=== PATIENT | female | born 1985 | race Caucasian/White ===

== ENCOUNTER 2016-07-11 21:53 | Emergency (ER) | payer OTHER ==
[~2016-07-11] VITALS: Ht 160 cm; Wt 89.8 kg
[2016-07-11 22:09] VITALS: BP 153/100
--- NOTE | 2016-07-11 22:18 | NUR ---
AMBULATED TO ER BED 8
--- NOTE | 2016-07-11 22:25 | NUR ---
30 YO PATIENT PRESENTS TO ED WITH VAGINA LT LABIAL PAIN . PT STATES WAS SEEN IN [facility] ER LAST WEEK BUT IS NOT GETTING BETTER . DENIES N/V/D; SKIN IS PINK/WARM/DRY; AAOX4 WITH EVEN AND STEADY GAIT; LUNGS CLEAR BL; HR EVEN AND REGULAR; PT DENIES ANY FEVER, CP, SOB, OR COUGH AT THIS TIME; PATIENT STATES PAIN OF 10/10 AT THIS TIME; VSS; PATIENT POSITIONED FOR COMFORT; HOB ELEVATED; BEDRAILS UP X2; BED DOWN. ER MD MADE AWARE OF PT STATUS.
--- NOTE | 2016-07-11 22:31 | NUR ---
Patient being evaluated by physician at bedside.
[2016-07-11] MEDS ORDERED: LIDOCAINE 1% 500 MG/50 ML VIAL INJ ONE (22:35)
[2016-07-11] MEDS ORDERED: HYDROmorphone 1 MG/ML AMP IVP ONE (22:35)
[2016-07-11] MEDS ORDERED: NACL 0.9% 1,000 ML IV ONE (22:35)
[2016-07-11] MEDS ORDERED: CLINDAMYCIN 600 MG in DEXTROSE 5% 50 ML IV ONE (22:35)
[2016-07-11] MEDS ORDERED: KETOROLAC 30 MG/ML VIAL IVP ONE (22:35)
[2016-07-11] MEDS ORDERED: CLINDAMYCIN 600 MG/4 ML VIAL ONE (22:45)
--- NOTE | 2016-07-11 23:50 | NUR ---
IVP DILAUDED 1MG BY HERMAN BONNER
[2016-07-12] MEDS: HYDROmorphone 1 MG/ML AMP IVP ONE ×2 (00:13→00:15)
--- NOTE | 2016-07-12 00:45 | NUR ---
IV FLUID D/C'D AT 0043
--- NOTE | 2016-07-12 00:57 | NUR ---
Patient discharged with v/s stable. Written and verbal after care instructions given and explained. Patient alert, oriented and verbalized understanding of instructions. Ambulatory with steady gait. All questions addressed prior to discharge. ID band removed. Patient advised to follow up with PMD. Rx of Clindamycin and Naproxen given. Patient educated on indication of medication including possible reaction and side effects. Opportunity to ask questions provided and answered.
--- NOTE | 2016-07-12 00:58 | NUR ---
Star hanna in ED - 07/12/16 at 0634 by [id number] Patient discharged with v/s stable. Written and verbal after care instructions given and explained. Patient verbalized understanding. Ambulatory with steady gait. All questions addressed prior to discharge. Advised to follow up with PMD.
[2016-07-12 06:34] VITALS: BP 134/69
== END 2016-07-12 00:55 | disposition home or self-care (01) ==
LOC: MED 21:53
DX: N75.1 Abscess of Bartholin's gland (principal); J45.909 Unspecified asthma, uncomplicated; Z88.5 Allergy status to narcotic agent
CPT/HCPCS: 56420; 81002; 81025; 96361; 96365; 96375; 96376; 99284; J1170; J1885; J2001; J3490; J7030

== ENCOUNTER 2018-08-23 18:48 | Emergency (ER) | payer BC, OTHER ==
[~2018-08-23] VITALS: Ht 162.6 cm; Wt 93.0 kg
[2018-08-23 19:08] VITALS: BP 127/74
--- NOTE | 2018-08-23 19:19 | NUR ---
PT AMBULATED TO THE RESTROOM AND BACK TO THE LOBBY. VSS
--- NOTE | 2018-08-23 21:02 | NUR ---
PATIENT BIB W/C TO ER BED 5.
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
[2018-08-23] MEDS ORDERED: KETOROLAC 30 MG/ML VIAL IM ONE (21:30)
--- NOTE | 2018-08-23 21:44 | NUR ---
KNEE SPLINT APPLIED TO PT R LEG, FITTED TO SIZE. +CSM
[2018-08-23 21:56] VITALS: BP 119/76
--- NOTE | 2018-08-23 21:56 | NUR ---
Patient discharged with v/s stable. Written and verbal after care instructions given and explained. Patient alert, oriented and verbalized understanding of instructions. Ambulatory with steady gait. All questions addressed prior to discharge. ID band removed. Patient advised to follow up with PMD. Rx of NORCO, NAPROSYN given. Patient educated on indication of medication including possible reaction and side effects. Opportunity to ask questions provided and answered.
== END 2018-08-23 21:56 | disposition home or self-care (01) ==
LOC: MED 18:48
DX: S80.01XA Contusion of right knee, initial encounter (principal); J45.909 Unspecified asthma, uncomplicated; Z88.5 Allergy status to narcotic agent; W19.XXXA Unspecified fall, initial encounter; Y93.89 Activity, other specified; Y92.89 Other specified places as the place of occurrence of the external cause; Y99.8 Other external cause status
CPT/HCPCS: 29505; 73562; 81025; 96372; 99283; J1885

== ENCOUNTER 2019-11-11 11:49 | Emergency (ER) | payer BC ==
[~2019-11-11] VITALS: Ht 160 cm; Wt 86.2 kg
--- NOTE | 2019-11-11 11:55 | NUR ---
Patient taken to bed 10.
[2019-11-11 11:57] VITALS: BP 136/83
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
[2019-11-11] MEDS ORDERED: BACITRACIN OINT 500 UNITS/GM PKT TP ONE (12:20)
[2019-11-11] MEDS ORDERED: LIDOCAINE MPF 1% 10 MG/ML VIAL INJ ONE (12:20)
[2019-11-11 13:07] VITALS: BP 136/83
== END 2019-11-11 13:07 | disposition home or self-care (01) ==
LOC: MED 11:49
DX: S61.011A Laceration without foreign body of right thumb without damage to nail, initial encounter (principal); J45.909 Unspecified asthma, uncomplicated; Z88.5 Allergy status to narcotic agent; W25.XXXA Contact with sharp glass, initial encounter; Y93.E9 Activity, other interior property and clothing maintenance; Y92.090 Kitchen in other non-institutional residence as the place of occurrence of the external cause; Y99.8 Other external cause status
CPT/HCPCS: 12002; 99282; J2001

== ENCOUNTER 2023-09-23 18:44 | Emergency (ER) | payer BC, MEDICAID ==
[~2023-09-23] VITALS: Ht 160 cm; Wt 86.2 kg
[2023-09-23 18:52] VITALS: BP 146/75; PULSE 87; RESP 20; TEMP 97.9; O2SAT 100
[2023-09-23] MEDS: LIDOCAINE MPF 1% 10 MG/ML VIAL INJ ONE (19:23)
[2023-09-23] MEDS: BACITRACIN OINT 500 UNITS/GM PKT TP ONE (19:23)
[2023-09-23] MEDS ORDERED: BACI-418 TP (19:43)
== END 2023-09-23 19:54 | disposition home or self-care (01) ==
LOC: MED 18:44
DX: S61.213A Laceration without foreign body of left middle finger without damage to nail, initial encounter (principal); J45.909 Unspecified asthma, uncomplicated; Z79.899 Other long term (current) drug therapy; Z88.8 Allergy status to other drugs, medicaments and biological substances; W26.0XXA Contact with knife, initial encounter; Y93.89 Activity, other specified; Y92.89 Other specified places as the place of occurrence of the external cause; Y99.8 Other external cause status
CPT/HCPCS: 12001; 99282; J2001